=== PATIENT | male | born 1980 | race Caucasian/White ===

== ENCOUNTER → 2021-05-14 13:22 | Outpatient (BNVA) | payer OTHER, SELFPAY | PROVIDERS: PCP Internal Medicine; Visit Provider Surgery ==

== ENCOUNTER 2021-05-18 10:27 | Day surgery (SDC) | payer OTHER, SELFPAY ==
--- NOTE | 2021-05-17 10:02 | HO.ANESPROP2 ---
Documented by User: Sanjuana Rodriguez NP 05/17/21 10:04 HPI - Anesthesia Eval Consult details Narrative: 40yo M for Exam Under Anesthesia, Poss Excision Perianal Cyst, Poss I&D of Perianal Abscess PMFSH Active Problems Active Problems: All Active Problems (Updated 05/14/21 @ 13:51 by Lebron Blue MD) Rectal or anal pain (Acute) Abscess, rectum (Acute) Past Medical History Medical History (Updated 05/14/21 @ 13:51 by Lebron Blue MD) Rectal or anal pain Family History Family History (Updated 05/14/21 @ 13:29 by BONITA Yu) Mother Breast cancer Surgical History Surgical History (Updated 05/14/21 @ 13:28 by BONITA Yu) History of removal of cyst Status post subacromial decompression Social History Social History (Updated 05/14/21 @ 13:29 by BONITA Yu) Alcohol intake: current Alcohol intake frequency: holidays/special occasions only Patient Tobacco Use Status: Former Tobacco user Second Hand Smoke Exposure: No Use of substances other than those prescribed or required for medical reasons: No Are you DNR?: No Advance Directives: No Advance Directives Information Provided: Yes Advance Directives on File: No Meds Allergies Allergy/AdvReac Type Severity Reaction Status Date / Time No Known Allergies Allergy Verified 05/14/21 13:31 [No Known Allergies*] Home Medications Medication Instructions Recorded Confirmed Last Taken Type No Known Home Meds 05/07/21 05/14/21 Unknown History Exam Exam Date and Time: May 17, 2021 1002 Assessment and Plan Assessment Anesthesia Assessment: Chart Reviewed Documented by User: Thor Pereyra MD 05/18/21 12:20 PMFSH Past Medical History Medical History (Updated 05/14/21 @ 13:51 by Lebron Blue MD) Rectal or anal pain Family History Family History (Updated 05/14/21 @ 13:29 by BONITA Yu) Mother Breast cancer Family history of problems with anesthesia: No Surgical History Surgical History (Updated 05/14/21 @ 13:28 by BONITA Yu) History of removal of cyst Status post subacromial decompression History of Problems with Anesthesia: No Social History Social History (Updated 05/14/21 @ 13:29 by BONITA Yu) Alcohol intake: current Alcohol intake frequency: holidays/special occasions only Patient Tobacco Use Status: Former Tobacco user Second Hand Smoke Exposure: No Use of substances other than those prescribed or required for medical reasons: No Are you DNR?: No Advance Directives: No Advance Directives Information Provided: Yes Advance Directives on File: No Meds Allergies Allergy/AdvReac Type Severity Reaction Status Date / Time No Known Allergies Allergy Verified 05/14/21 13:31 [No Known Allergies*] Home Medications Medication Instructions Recorded Confirmed Last Taken Type No Known Home Meds 05/07/21 05/14/21 Unknown History Exam Airway Mallampati Class: I TM Dist: >3cm Neck ROM: Full Loose/Missing/Broken Teeth: No Heart: ok Lungs: ok Assessment and Plan Assessment Anesthesia Assessment: Anesthesia Plan Discussed and Chart Reviewed Final Anesthetic Review Family History of Problems with Anesthesia: No History of Problems with Anesthesia: No NPO: Yes ASA Class: II Final Preanesthetic Review: No Changes in Pt Med Stat, Meds/Allgs Chart Reviewed and Consent Obtained/Reviewed Patient Risk: Low Procedure Risk: Intermediate Anesthetic Plan Anesthetic Plan: GA and Agree w/ Assess. and Plan Disposition: Standard PACU
[2021-05-18 10:30] VITALS: BMI 36.2
[2021-05-18 10:50] VITALS: BP 133/81; PULSE 77; RESP 16; TEMP 36.5; O2SAT 98
[2021-05-18] MEDS: Lactated Ringers 1,000 ML 100 ML IVCONT (10:51)
--- NOTE | 2021-05-18 12:00 | MHC.SHP ---
Pre-Procedural Eval Section A Date of Service: 05/18/21 Section B Chief Complaint: Rectal or anal pain Allergies: Allergies Allergy/AdvReac Type Severity Reaction Status Date / Time No Known Allergies Allergy Verified 05/14/21 13:31 [No Known Allergies*] Plan I have reviewed the history and physical and performed a pertinent physical examination on my patient. No changes have occurred unless specified.
[2021-05-18 13:27] VITALS: BP 143/96; PULSE 84; RESP 18; TEMP 36.6; O2SAT 98
--- NOTE | 2021-05-18 13:29 | P.OP_ITS ---
Operative Note Operative Note Date of Service: 05/18/21 Narrative: Preop diagnosis: Perianal cyst versus abscess Postop diagnosis: Anal fistula Procedure: Exam under anesthesia, placement of seton Surgeon: Lebron Blue MD Computer Graphics Illustrator: Jolene Chatterjee The patient is a 40-year-old male who was seen in the office because of pain in the anus along with some periodic drainage of what he initially said was pus and blood. Examination in the office revealed a makes his 6 induration in the posterior lateral aspect just distal to the anal verge. He stated this is tender as well. There was no obvious external fistulous opening. In view of his persistent pain and drainage he wanted proceed with exam under anesthesia. I had explained to him the technique of incision and drainage, excision of the cyst, or even a seton placement. He wanted to proceed. He was brought to the operating room and placed in prone flynn-knife position under general anesthesia via laryngeal mask airway. The buttocks were retracted with wide tape laterally. The perianal area was prepped and draped in the usual sterile fashion. A surgical time-out was done. The patient received Cefotan 2 g IV preoperatively. Examination of the perianal area revealed bulky external hemorrhoids on the rig ht side. There were smaller hemorrhoidal columns on the left. There was a palpable vague cystic induration in the right posterolateral aspect just distal to the anal verge. There was no external fistulous opening on this. I inserted the Chance Quesada retractor and examined the anal canal circumferentially. Pressure on the anal verge on the right posterolateral area showed drainage of bloody fluid from somewhere in the dentate line also in the right posterolateral area which seemed to be radial to where that induration was on the verge. Aside from the hemorrhoidal tissue on both the left and the right side, I did not see any other lesions. There was no obvious induration and anal canal. There was however what appeared to be puckering on the dentate line which seemed to be where the drainage was being I was able to retract this is done hook probe and this some to be suggestive of a internal fistulous opening. There was no obvious external fistulous opening but since there was this vague induration about 2 cm on the posterolateral aspect distal to the anal verge, I made a short incision on this and bluntly dissected through this existing induration. There seemed to be a cavity in this area with drainage of bloody serous fluid. I gently advanced a probe into this cavity and slowly advance this toward the direction of the dentate line and I was able to actually locate a tract that led into the opening at the level of the dentate line itself. I passed a yellow vessel loop through this tract using this probe. I looped this vessel loop as a seton and close the loop with a silk 3-0 tie. I then shortened the tract by unroofing the scan overlying the external side of the tract. I cauterized the open part of the tract to ensure hemostasis. I then we observed the anal canal. Once hemostasis was ensured, I infiltrated the perianal area with Marcaine 0.5% for postop analgesia. The procedures then completed The patient tolerated procedure well. There were no complications noted. Initial and final counts of sponges and instruments were correct. Estimated blood loss was blood loss was about 50 cc. The patient was then extubated and transferred to the recovery room with stable vital signs.
[2021-05-18 13:32] VITALS: BP 145/95; PULSE 67; RESP 18; O2SAT 98
[2021-05-18 13:37] VITALS: BP 144/97; PULSE 61; RESP 18; O2SAT 98
[2021-05-18] MEDS: Acetaminophen 325 MG TABLET 650 MG PO (13:37)
[2021-05-18] MEDS: Ketorolac Tromethamine 15 MG/ML VIAL IVPUSH (13:38)
[2021-05-18] MEDS: oxyCODONE HCl Immed Release 5 MG TABLET 10 MG PO (13:40)
[2021-05-18 13:42] VITALS: BP 136/90; PULSE 66; RESP 18; O2SAT 99
[2021-05-18] MEDS: ondansetron HCL 4 MG/2 ML VIAL IVPUSH (13:43)
--- NOTE | 2021-05-18 13:43 | PM.OP ---
Brief Operative Note Date of Service: 05/18/21 Pre-op diagnosis: perianal abscess vs cyst Post-op diagnosis: other (anal fistula) Procedure: EUA, seton placement Surgeon: Lebron Blue MD Anesthesia: GLMA Was an Development And Planning Engineer used for this Procedure?: No Estimated blood loss (mL): 50 Pathology: none sent Condition: stable Disposition: PACU
[2021-05-18 13:57] VITALS: BP 134/77; PULSE 60; RESP 18; TEMP 36.6; O2SAT 97
== END 2021-05-18 14:34 | disposition home or self-care (01) ==
PROVIDERS: PCP Internal Medicine; Visit Provider Surgery
PROC: (CPT 46020; principal; 2021-05-18 12:00)
DX: K60.3 Anal fistula (principal); K64.4 Residual hemorrhoidal skin tags
CPT/HCPCS: 46020; J1100; J1885; J2250; J2405; J3010

== ENCOUNTER → 2021-05-30 11:13 | Outpatient (BNVA) | payer OTHER, SELFPAY | PROVIDERS: PCP Internal Medicine; Visit Provider Surgery ==

== ENCOUNTER → 2021-06-27 12:52 | Outpatient (BNVA) | payer OTHER, SELFPAY | PROVIDERS: PCP Internal Medicine; Referring Provider Internal Medicine; Visit Provider Surgery | DX: K60.3 Anal fistula (principal) ==

== ENCOUNTER → 2021-07-09 13:16 | Outpatient (BNVA) | payer OTHER, SELFPAY | PROVIDERS: PCP Internal Medicine; Referring Provider Internal Medicine; Visit Provider Surgery ==

== ENCOUNTER → 2021-07-16 15:21 | Outpatient (BNVA) | payer OTHER, SELFPAY | PROVIDERS: PCP Internal Medicine; Referring Provider Internal Medicine; Visit Provider Surgery ==

== ENCOUNTER → 2021-07-23 15:19 | Outpatient (BNVA) | payer OTHER, SELFPAY | PROVIDERS: PCP Internal Medicine; Referring Provider Internal Medicine; Visit Provider Surgery | DX: K60.3 Anal fistula (principal) ==

== ENCOUNTER → 2021-08-23 15:25 | Outpatient (BNVA) | payer OTHER, SELFPAY | PROVIDERS: PCP Internal Medicine; Referring Provider Internal Medicine; Visit Provider Surgery | DX: K60.3 Anal fistula (principal) ==

== ENCOUNTER → 2021-09-24 15:16 | Outpatient (BNVA) | payer OTHER, SELFPAY | PROVIDERS: PCP Internal Medicine; Referring Provider Internal Medicine; Visit Provider Surgery | DX: K60.3 Anal fistula (principal) ==

== ENCOUNTER → 2021-10-25 15:14 | Outpatient (BNVA) | payer OTHER, SELFPAY | PROVIDERS: PCP Internal Medicine; Referring Provider Internal Medicine; Visit Provider Surgery | DX: K60.3 Anal fistula (principal) ==

== ENCOUNTER → 2021-11-22 15:20 | Outpatient (BNVA) | payer OTHER, SELFPAY | PROVIDERS: PCP Internal Medicine; Visit Provider Surgery | DX: K60.3 Anal fistula (principal) ==

== ENCOUNTER → 2021-12-20 15:19 | Outpatient (BNVA) | payer OTHER, SELFPAY | PROVIDERS: PCP Internal Medicine; Referring Provider Internal Medicine; Visit Provider Surgery | DX: K60.3 Anal fistula (principal) ==

== ENCOUNTER → 2022-01-17 15:15 | Outpatient (BNVA) | payer OTHER, SELFPAY | PROVIDERS: PCP Internal Medicine; Referring Provider Internal Medicine; Visit Provider Surgery | DX: K60.3 Anal fistula (principal) | CPT/HCPCS: 46030 ==

== ENCOUNTER 2023-10-01 11:06 | Outpatient (AMB) | payer OTHER, SELFPAY ==
--- NOTE | 2023-10-01 12:06 | AM.OFFWIN_ITS ---
Intake Vital Signs 10/01/23 12:14 Height 5 ft 11 in Weight 226 lb BMI 31.5 BP 112/80 Blood Pressure Location Lt brachial Position Sitting Pulse 99 Pulse Oximetry (%) 97 Oxygen Delivery Method Room Air Intake Visit Reasons: EST/lower back pain([phone]) Intake Note: pt is here today for lower back pain started friday Patient Tobacco Use Status: Former Tobacco user Quit Date: 2015 Allergies No Known Allergies [No Known Allergies*] Allergy (Verified 10/01/23 12:32) Medication List - Last Reconciled 10/01/23 by Micha Ferreira MD No Known Home Meds Do you need a note to return to daycare/school/sports/work: Yes HPI EST/lower back pain([phone]) HPI Details 43-year-old male presents to the office for a sick visit. Patient is complaining of pain in the lower back shoveling snow. Pain is localized to the hip area and is having spasms of pain. ON LICENSE OF [facility] Medical History Anal fistula Obesity (BMI 35.0-39.9 without comorbidity) Rectal or anal pain Refused influenza vaccine Surgical History History of removal of cyst Status post subacromial decompression Family History Mother Breast cancer Social History Alcohol intake: current Alcohol intake frequency: holidays/special occasions only Patient Tobacco Use Status: Former Tobacco user Quit Date: 2015 Years Smoked: 20 yrs Second Hand Smoke Exposure: No Substance Use Type: Marijuana Physical Exam Vital Signs: Last Vital Signs Pulse 99 10/01/23 12:14 BP 112/80 10/01/23 12:14 Pulse Ox 97 10/01/23 12:14 Oxygen Delivery Method Room Air 10/01/23 12:14 BMI result Body Mass Index 31.5 Back/Spine/Pelvis Other: No spinal tenderness. No paraspinal spasm. Assessment & Plan Assessment & Plan (1) Lower back injury: Code(s): S39.92XA - Unspecified injury of lower back, initial encounter Plan Meloxicam and cyclobenzaprine called in. Patient was advised rest. Note for w ork if necessary provided. Once pain symptoms subside, patient should start physical therapy. If symptoms worsen to follow-up here. Coding Level of Care Code Est Pt Level 3 (69004) Diagnoses Lower back injury S39.92XA
[2023-10-01 12:14] VITALS: BP 112/80; PULSE 99; O2SAT 97; BMI 31.5
== END 2023-10-01 12:46 | disposition home or self-care (01) ==
PROVIDERS: PCP Internal Medicine; Visit Provider Internal Medicine
DX: S39.92XA Unspecified injury of lower back, initial encounter (principal)
CPT/HCPCS: 99213

== ENCOUNTER 2025-09-20 14:56 | Outpatient (AMB) | payer OTHER, SELFPAY ==
[2025-09-20 15:02] VITALS: BP 120/78; PULSE 94; TEMP 36.8; O2SAT 97; BMI 26.2
--- NOTE | 2025-09-20 15:02 | MHC.OFFWIV ---
Intake Vital Signs 09/20/25 15:02 Height 5 ft 11 in Weight 188 lb BMI 26.2 BP 120/78 Blood Pressure Location Lt brachial Position Sitting Pulse 94 Pulse Source Pulse Oximeter Temp 98.2 F Temp Source Oral Pulse Oximetry (%) 97 Oxygen Delivery Method Room Air Intake Visit Reasons: EP Swollen glands, throat pain Intake Note: pt presents with bilateral swollen glands and throat pain x2 weeks Patient Tobacco Use Status: Former Tobacco user Allergies No Known Allergies (No Known Allergies*) Allergy (Verified 09/20/25 15:09) Do you need a note to return to daycare/school/sports/work: No HPI HPI Comments History of Present Illness Details History - The patient is a 45-year-old male presenting with a sore throat, tender neck glands, and difficulty swallowing for a couple of weeks. 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 - Before Zamzam, he experienced a cough and stuffiness, which have since resolved, but the sore throat has progressively worsened. - He describes the sensation of swallowing as feeling like a blockage that causes pain, requiring him to consciously make an effort to swallow. - Associated symptoms include the recent onset of ear pain. - He reports subjective fevers, feeling hot and cold, but has not measured his temperature. - He denies sinus pain, headaches, fatigue, or a current cough. - The patient reports no known drug allergies. Review of Systems - Constitutional: Reports feeling hot and cold but denies measured fever. Denies fatigue. - HEENT: Reports a worsening sore throat and odynophagia described as a painful blockage sensation upon swallowing. Reports tender glands in the neck and recent onset of ear pain. Denies sinus pain, headaches, cough, or stuffiness. All systems reviewed and are unremarkable except as noted in HPI Physical Exam General: Cooperative, healthy appearing, comfortable and no acute distress Orientation/consciousness: Patient oriented x3 Limitations: No limitations Head: Normal to inspection Ears: Hearing grossly normal bilaterally, external ears normal, EAC's normal bilaterally and TM's normal bilaterally Nose: Normal external nose present, Normal nares present and No nasal discharge present Face and sinus: Normal facial exam and sinuses nontender Mouth: Normal oral and palatal mucosa present and moist mucous membranes Throat: Bilateral tonsils with significant erythema and edema, no exudates, uvula midline, posterior oropharynx erythema Eyes: Appearance normal, both eyes and all related structures Neck: Tender cervical lymph nodes, normal visual inspection, full ROM Respiratory: Normal respiratory effort, able to speak in complete sentences, no respiratory distress, not tachypneic, no tripod positioning and no use of accessory muscles Skin: No rashes or lesions noted Neuro: Patient oriented x3 Extremities: Normal to inspection and Yes no clubbing, cyanosis or edema PFSH Medical History Anal fistula Obesity (BMI 35.0-39.9 without comorbidity) Rectal or anal pain Refused influenza vaccine Surgical History History of removal of cyst Status post subacromial decompression Family History Mother Breast cancer Social History Alcohol intake: current Alcohol intake frequency: holidays/special occasions only Patient Tobacco Use Status: Former Tobacco user Years Smoked: 20 yrs Second Hand Smoke Exposure: No Substance Use Type: Marijuana Physical Exam Vital Signs: Last Vital Signs Temp 98.2 F 09/20/25 15:02 Pulse 105 H 09/20/25 15:02 BP 120/78 09/20/25 15:02 Pulse Ox 97 09/20/25 15:02 Oxygen Delivery Method Room Air 09/20/25 15:02 BMI result Body Mass Index 26.2 Results AMB Rapid Strep AMB Rapid Strep Negative Last Edit by Janay Whalen CMA on 09/20/25 15:13 Results Reviewed Results Reviewed: Laboratory Last Values Strep Scn Rapid Clinic Negative 09/20/25 15:11 Assessment & Plan Assessment & Plan (1) Strep pharyngitis: Code(s): J02.0 - Streptococcal pharyngitis Plan: Patient was informed and verbally consented to the use of an ambient scribe for clinic note documentation during this visit. Streptococcal Pharyngitis - VSS, pt well appearing and PE remarkable for significant erythema and edema of tonsils. - Based on the Centor criteria, the patient scores 3 points (swollen tonsils, tender lymph nodes, absence of cough), indicating a 28-35% probability of streptococcal pharyngitis, which warrants empirical treatment. - Although a rapid strep test was performed, a throat culture has been sent for definitive diagnosis. - A prescription for amoxicillin 500 mg to be taken twice daily for 10 days was sent to [facility]. - The patient was advised to continue the full course of antibiotics unless instructed to stop, which would only occur if the throat culture is negative. - Recommended supportive care includes maintaining hydration, using ibuprofen for pain and inflammation, and consuming hot tea with honey for soothing effects. - Follow up with PCP if no improvement in symptoms post-treatment. Orders: Orders AMB Rapid Strep Screen Today Z13.9 - Encounter for screening, unspecified Medications: New amoxicillin 500 mg PO Q12H 20 tabs 0RF Coding Level of Care Code New Pt Level 3 (53025) Diagnoses Strep pharyngitis J02.0
== END 2025-09-20 15:43 | disposition home or self-care (01) ==
PROVIDERS: Visit Provider Physician Assistant
DX: J02.0 Streptococcal pharyngitis (principal); Z13.9 Encounter for screening, unspecified

== ENCOUNTER → 2025-09-20 14:56 | Outpatient (BNVA) | payer OTHER, SELFPAY | PROVIDERS: Visit Provider Physician Assistant | DX: J02.0 Streptococcal pharyngitis (principal); Z87.891 Personal history of nicotine dependence | CPT/HCPCS: 87880 ==

== ENCOUNTER 2025-09-21 08:40 | Outpatient (REF) | payer OTHER, SELFPAY | END 2025-09-21 08:41 | disposition home or self-care (01) | LOC: HO.LAB 08:40 | PROVIDERS: Visit Provider Physician Assistant | DX: J02.9 Acute pharyngitis, unspecified (principal) | CPT/HCPCS: 87070 ==